=== PATIENT | male | born 1960 | race Caucasian/White ===

== ENCOUNTER 2019-05-13 00:47 | Emergency (ER) | payer BC ==
[~2019-05-13] VITALS: Ht 182.9 cm; Wt 84.0 kg
[~2019-05-13 00:47] MED LIST: PRED5DRO23 RIGHTEYE
[2019-05-13 00:50] VITALS: BP 137/84
[2019-05-13] MEDS ORDERED: LIDOcaine 1% W/epiNEPHrine 1:100,000 20ml vial IJ ONE (03:15)
== END 2019-05-13 06:12 | disposition home or self-care (01) ==
LOC: ER 00:48
DX: L03.116 Cellulitis of left lower limb (principal); L02.612 Cutaneous abscess of left foot; E11.40 Type 2 diabetes mellitus with diabetic neuropathy, unspecified; Z79.84 Long term (current) use of oral hypoglycemic drugs; Z79.899 Other long term (current) drug therapy
CPT/HCPCS: 10060; 82948; 99283

== ENCOUNTER 2019-05-24 16:57 | Emergency (ER) | payer BC ==
[~2019-05-24] VITALS: Ht 182.9 cm; Wt 86.0 kg
[2019-05-24 17:23] VITALS: BP 160/83
[2019-05-24 18:01] LABS: BASOPHILS % (AUTO) 0.4 % (0-1); EOSINOPHILS # (AUTO) 0.2 X10'3 (0-0.9); EOSINOPHILS % (AUTO) 1.2 % (0-6); HEMATOCRIT 44.6 % (42.0-52.0); HEMOGLOBIN 15.2 g/dl (14.0-17.9); LYMPHOCYTES # (AUTO) 1.6 X10'3 (1.1-4.8); LYMPHOCYTES % (AUTO) 12.3 % (21-51); MEAN CORPUSCULAR HEMOGLOBIN 28.5 PG (27.0-31.0); MEAN CORPUSCULAR VOLUME 83.9 FL (78-98); MEAN PLATELET VOLUME 9.1 FL (7.4-10.4); MONOCYTES # (AUTO) 0.7 X10'3 (0-0.9); MONOCYTES % (AUTO) 5.1 % (2-12); NEUTROPHILS # (AUTO) 10.4 X10'3 (1.8-7.7); PLATELET COUNT 177 X10'3 (140-440); RED BLOOD COUNT 5.32 X10'6 (4.70-6.10); RED CELL DISTRIBUTION WIDTH 13.2 % (11.5-14.5); WHITE BLOOD COUNT 12.8 X10'3 (4.5-11.0)
[2019-05-24 18:16] LABS: ALANINE AMINOTRANSFERASE 28 U/L (12-78); ALBUMIN 4.1 G/DL (3.4-5.0); ALBUMIN/GLOBULIN RATIO 1.1 (1.1-1.5); ALKALINE PHOSPHATASE 77 IU/L (46-116); ANION GAP 9 (8-16); ASPARTATE AMINO TRANSFERASE 19 U/L (10-37); BILIRUBIN,TOTAL 0.5 MG/DL (0.1-1.0); BLOOD UREA NITROGEN 28 MG/DL (7-18); BUN/CREATININE RATIO 29.5 (5.4-32.0); CALCIUM 9.3 MG/DL (8.5-10.1); CHLORIDE 103 MMOL/L (99-107); CREATININE 0.95 MG/DL (0.60-1.10); GLUCOSE 201 MG/DL (70-104); LIPASE 181 U/L (73-393); POTASSIUM 3.8 MMOL/L (3.5-5.1); SODIUM 138 MMOL/L (135-145); TOTAL CARBON DIOXIDE 25.8 MMOL/L (24-32); eGFR 81 ML/MIN
[2019-05-24] MEDS ORDERED: iohexol 300mg/ml 100ml inj. ONE (19:13)
[2019-05-24] MEDS ORDERED: normal saline 1000ML IV soln IVB ONE (19:15)
[2019-05-24] MEDS ORDERED: ONDA4TAB6 PO (20:10)
[2019-05-25] MEDS ORDERED: BACDS PO (22:57)
== END 2019-05-24 20:56 | disposition home or self-care (01) ==
LOC: ER 16:58
DX: R10.32 Left lower quadrant pain (principal); R10.12 Left upper quadrant pain; R10.33 Periumbilical pain; R11.0 Nausea; E11.9 Type 2 diabetes mellitus without complications; Z79.899 Other long term (current) drug therapy
CPT/HCPCS: 36415; 74177; 80053; 83690; 85025; 99284; J7030; Q9967

== ENCOUNTER 2019-05-25 21:46 | Emergency (ER) | payer BC ==
[~2019-05-25] VITALS: Ht 182.9 cm; Wt 71.8 kg
[~2019-05-25 21:46] MED LIST changes: +ONDA4TAB6 PO
[2019-05-25] MEDS ORDERED: BACDS PO (22:57)
[2019-05-25 23:08] VITALS: BP 142/89
== END 2019-05-25 23:10 | disposition home or self-care (01) ==
LOC: ER 22:43
DX: L03.116 Cellulitis of left lower limb (principal); R59.0 Localized enlarged lymph nodes; E11.40 Type 2 diabetes mellitus with diabetic neuropathy, unspecified
CPT/HCPCS: 99283; 99284

== ENCOUNTER 2024-04-05 13:35 | Outpatient (CLI) | payer MEDICARE, MEDICAID | END 2024-04-05 23:59 | disposition home or self-care (01) | LOC: CARD DIAG 13:35 | PROVIDERS: ATTEND Family Medicine | DX: I08.8 Other rheumatic multiple valve diseases (principal); R01.1 Cardiac murmur, unspecified | CPT/HCPCS: 93306 ==

== ENCOUNTER 2024-07-16 21:24 | Emergency (ER) | payer MEDICARE, MEDICAID ==
[~2024-07-16] VITALS: Ht 182.9 cm; Wt 96.4 kg
[2024-07-16 21:50] VITALS: BP 179/91; PULSE 73; RESP 19; TEMP 97.8; O2SAT 97
[2024-07-16] MEDS: LORazepam 0.5 MG tablet PO STA (22:37)
== END 2024-07-16 22:40 | disposition home or self-care (01) ==
LOC: ER 21:25
DX: F41.9 Anxiety disorder, unspecified (principal); F22 Delusional disorders; F12.90 Cannabis use, unspecified, uncomplicated; Z79.899 Other long term (current) drug therapy
CPT/HCPCS: 99283